=== PATIENT | female | born 1975 | race Hispanic/Latino ===

== ENCOUNTER 2019-11-03 18:31 | Emergency (ER) | payer SELFPAY ==
[~2019-11-03] VITALS: Ht 154.9 cm; Wt 99.8 kg
[2019-11-03] MEDS ORDERED: MORPHINE SULFATE 2 MG/ML SYR 1ML IV STA (18:57)
[2019-11-03] MEDS ORDERED: ONDANSETRON HCL INJ 2MG/ML 2ML 2 MG/ML VIAL IV STA (18:57)
[2019-11-03] MEDS ORDERED: FAMOTIDINE 20 MG/2 ML VIAL IV STA (18:57)
--- NOTE | 2019-11-03 18:58 | NUR ---
justine santiago to ziggy cates.
[2019-11-03] MEDS ORDERED: SODIUM CHLORIDE 0.9% 1000ML 1,000 ML IV STA (19:01)
[2019-11-03] MEDS ORDERED: SODIUM CHLORIDE 0.9% 1000ML 1,000 ML ONE (19:17)
[2019-11-03] MEDS ORDERED: MORPHINE SULFATE INJ 4 MG/ML INJ 1ML ONE (19:17)
[2019-11-03] MEDS ORDERED: FAMOTIDINE 20 MG/2 ML VIAL IV ONE (19:17)
--- NOTE | 2019-11-03 19:50 | Diagnostic Imaging Report ---
EXAMINATION: CT of the abdomen and pelvis without contrast. TECHNIQUE: Spiral CT images of the abdomen and pelvis were performed from the lung bases to the lesser trochanters. No intravenous contrast was given per physician's request. Coronal and sagittal reformatted images were obtained. COMPARISON: None. CLINICAL HISTORY:Epigastric pain, upper abdominal pain since today DISCUSSION: ABSENCE OF INTRAVENOUS CONTRAST DECREASES SENSITIVITY FOR DETECTION OF FOCAL LESIONS AND VASCULAR PATHOLOGY. ABDOMEN/PELVIS: LOWER THORAX: Unremarkable. HEPATOBILIARY: Mild hepatomegaly, measuring 15.7 cm in the right midclavicular line. Diffuse hepatic steatosis. No focal lesions. No intra or extrahepatic biliary ductal dilation. GALLBLADDER: Cholecystectomy clips. SPLEEN: No splenomegaly. PANCREAS: No focal masses or ductal dilatation. ADRENALS: No adrenal nodules. KIDNEYS/URETERS: No renal or ureteral calculi, hydronephrosis or obstruction. No contour abnormalities. No perinephric stranding. PELVIC ORGANS/BLADDER: Bladder is decompressed but grossly unremarkable. Suspected urachal remnant. Uterus is unremarkable. No adnexal masses. PERITONEUM/RETROPERITONEUM: No free air or fluid. LYMPH NODES: No intra-abdominal,retroperitoneal, pelvic or inguinal lymphadenopathy. VESSELS: Unremarkable for noncontrast exam. GI TRACT: No bowel dilation or evidence of obstruction. Stomach is decompressed but grossly unremarkable. No pericolonic inflammatory changes. High density intraluminal material in the distal small bowel likely reflects ingestion of bismuth containing antacids, as the patient did not receive oral contrast. BONES AND SOFT TISSUES: No aggressive lytic or suspicious focal sclerotic lesions. Soft tissues are grossly unremarkable. IMPRESSION: 1. No acute abdominopelvic abnormalities. Specifically, no acute abnormal findings in the epigastric region. 2. Mild hepatomegaly with diffuse fatty infiltration. Signed by: Dr. Jaron Branham M.D. on 11/03/2019 7:47 PM
--- NOTE | 2019-11-03 20:14 | Emergency Department Note ---
History of Present Illnes History of Present Illness Chief Complaint: Abdominal Complaints History of Present Illness This is a 44 year old female . Chief Complaint Comment pt states epigastric pain since this afternoon, denies N/V/D last BM this AM. Historian: Patient Arrival Mode: Car Onset (how long ago): day(s) (2) Location: epigastric Quality: sharp Radiation: Reports non-radiation Severity: moderate Onset quality: gradual Duration (how long): day(s) (2) Timing of current episode: intermittent Progression: waxing and waning Chronicity: new Context: Denies recent illness, Denies recent surgery, Denies recent immobilization, Denies recent travel, Denies trauma/injury, Denies new medications, Denies hx of DVT/PE, Denies non-compliance w/ medications, Denies other Relieving factors: none Exacerbating factors: none Associated symptoms: Denies denies other symptoms, Denies confusion, Denies chest pain, Denies cough, Denies diaphoresis, Denies fever/chills, Denies headaches, Denies loss of appetite, Denies malaise, Denies nausea/vomiting, Denies rash, Denies seizure, Denies shortness of breath, Denies syncope, Denies weakness, Denies other Treatments prior to arrival: none Past Medical/Family History Physician Review I have reviewed the patient's past medical and family history. Any updates have been documented here. Past Medical History Recent Fever: No Clinical Suspicion of Infectio: No New/Unexplained Change in Ment: No Past Medical History: None Past Surgical History: Social History Smoking Cessation: Never Smoker Counseling Performed: No Alcohol Use: Occasional Any Illegal Drug Use: No Physically hurt or threatened: No Other Any Pre-Existing Lines (PICC,: No Review of Systems Review of Systems Constitutional: Reports no symptoms EENTM: Reports no symptoms Cardiovascular: Reports no symptoms Respiratory: Reports no symptoms Gastrointestinal: Reports as per HPI Genitourinary: Reports no symptoms Musculoskeletal: Reports no symptoms Integumentary: Reports no symptoms Neurological: Reports no symptoms Psychological: Reports no symptoms Endocrine: Reports no symptoms Hematological/Lymphatic: Reports no symptoms Physical Exam Related Data Allergies: Coded Allergies: No Known Allergies (Unverified , 11/03/19) Triage Vital Signs Vital Signs Date Time Temp Pulse Resp B/P (MAP) Pulse Ox O2 Delivery O2 Flow Rate FiO2 11/03/19 18:47 98.8 101 18 102/87 98 Room Air Vital signs reviewed: Yes Physical Exam CONSTITUTIONAL Constitutional: Present well-developed, Present well-nourished HENT HENT: Present normocephalic, Present atraumatic, Present oropharynx clear/moist, Present nose normal HENT L/R: Present left ext ear normal, Present right ext ear normal EYES Eyes: Reports PERRL, Reports conjunctivae normal NECK Neck: Present ROM normal PULMONARY Pulmonary: Present effort normal, Present breath sounds normal CARDIOVASCULAR Cardiovascular: Present regular rhythm, Present heart sounds normal, Present capillary refill normal, Present normal rate GASTROINTESTINAL Abdominal: Present soft, Present bowel sounds normal, Present tender (epigas tric) GENITOURINARY Genitourinary: Present exam deferred SKIN Skin: Present warm, Present dry MUSCULOSKELETAL Musculoskeletal: Present ROM normal NEUROLOGICAL Neurological: Present alert, Present oriented x 3, Present no gross motor or sensory deficits PSYCHOLOGICAL Psychological: Present mood/affect normal, Present judgement normal Results Laboratory Lab results reviewed: Yes Imaging Imaging results reviewed: Yes Assessment & Plan Medical Decision Making MDM gastritis pancreatitis Reassessment Reassessment time: 20:14 Reassessment better Assessment & Plan Final Impression: (1) Abdominal pain, acute, epigastric (2) Gastritis, acute Depart Disposition: HOME, SELF-CARE Last Vital Signs Date Time Temp Pulse Resp B/P (MAP) Pulse Ox O2 Delivery O2 Flow Rate FiO2 11/03/19 18:47 98.8 101 18 102/87 98 Room Air Medications in the ED Morphine Sulfate 2 mg NOW STAT IV Last administered on 11/03/19at 19:59; Admin Dose 2 MG; Start 11/03/19 at 18:57; Stop 11/03/19 at 19:11; Status DC Ondansetron HCl 4 mg NOW STAT IV Last administered on 11/03/19at 19:57; Admin Dose 4 MG; Start 11/03/19 at 18:57; Stop 11/03/19 at 19:12; Status DC Famotidine 20 mg NOW STAT IV Last administered on 11/03/19at 19:56; Admin Dose 20 MG; Start 11/03/19 at 18:57; Stop 11/03/19 at 19:11; Status DC Sodium Chloride 1,000 ml @ 0 mls/hr Q0M STAT IV Last administered on 11/03/19at 19:55; Admin Dose 1,000 MLS/HR; Start 11/03/19 at 19:01; Stop 11/03/19 at 19:03; Status DC Morphine Sulfate 4 mg STK-MED ONCE .ROUTE ; Start 11/03/19 at 19:17; Stop at 19:12; Status DC Sodium Chloride 1,000 ml @ ud STK-MED ONCE .ROUTE ; Start 11/03/19 at 19:17; Stop 11/03/19 at 19:12; Status DC Famotidine 20 mg STK-MED ONCE IV ; Start 11/03/19 at 19:17; Stop 11/03/19 at 19:12; Status DC HOPE BERRY MD Nov 03, 2019 20:14
[2019-11-03] MEDS ORDERED: PEPCID20 MG PO (20:17)
[2019-11-03] MEDS ORDERED: DICYCLOMINE HCL10 MG PO (20:17)
[2019-11-03 20:46] VITALS: BP 158/85
== END 2019-11-03 20:43 | disposition home or self-care (01) ==
LOC: FSED 19:20
DX: R10.13 Epigastric pain (principal); K29.00 Acute gastritis without bleeding
CPT/HCPCS: 74176; 80048; 80076; 81003; 85025; 96374; 96375; 96376; 99284; J2270 ×2; J2405; J7030